=== PATIENT | female | born 1980 | race Caucasian/White ===

== ENCOUNTER 2016-12-12 10:37 | Emergency (ER) | payer SELFPAY ==
--- NOTE | 2016-12-12 13:29 | Emergency Department Report ---
ED ENT HPI - General Chief complaint: Headache Stated complaint: SINUS INFECTION Time Seen by Provider: 12/12/16 13:19 Source: patient Mode of arrival: Ambulatory Limitations: No Limitations - History of Present Illness Initial comments: This is a 35-year-old female well-nourished with nontoxic or ill in appearance but presents with sore throat, headache, and congestion. Patient stated get frequent yearly sinus infection and last sinus infection was last year. Patient stated she is prescribed amoxillicin for 10 days and symptoms resolved. Patient denies any thunderclap headache, stated her headache is a gradual onset that is relieved with OTC Tylenol and ibuprofen. Patient stated has subjective fever and chills. Patient stated the symptoms are similar to yearly sinus infections that she gets. Patient denies loss of consciousness, head trauma, ecchymosis, chest pain, short of breath, blurry vision, decreased range of motion, drooling, difficulty swallowing, facial numbness, bladder or bowel instability, diaphoresis, nausea, vomiting, abdominal pain, joint pain or swelling, visual changes, chest wall tenderness, numbness or tingling sensation extremity. Patient agrees to good rectal tone with no bladder overflow. Patient is currently ambulatory with no assistance. Associated symptoms include sore throat that is described as swallowing razer blades 10/10. Denies allergies. Denies significant past history. MD complaint: sore throat -: Gradual, days(s) (2) Location: throat Severity: moderate Severity scale (0 -10): 10 Quality: other (swallowing razor blades) Consistency: constant Improves with: none Worsens with: swallowing Associated Symptoms: fever, pain with swallowing, sore throat. denies: cough, gum swelling, toothache, tinnitus, hearing loss, discharge from ear, rhinorrhea - Related Data Previous Rx's Medication Instructions Recorded Last Taken Type Amoxicillin 500 mg PO BID #20 capsule 12/12/16 Unknown Rx Ibuprofen [Motrin 600 MG tab] 600 mg PO Q8H PRN #20 tablet 12/12/16 Unknown Rx Allergies Allergy/AdvReac Type Severity Reaction Status Date / Time No Known Allergies Allergy Verified 12/12/16 15:11 ED Dental HPI - General Chief complaint: Headache Stated complaint: SINUS INFECTION Time Seen by Provider: 12/12/16 13:19 Source: patient Mode of arrival: Ambulatory Limitations: No Limitations - Related Data Previous Rx's Medication Instructions Recorded Last Taken Type Amoxicillin 500 mg PO BID #20 capsule 12/12/16 Unknown Rx Ibuprofen [Motrin 600 MG tab] 600 mg PO Q8H PRN #20 tablet 12/12/16 Unknown Rx Allergies Allergy/AdvReac Type Severity Reaction Status Date / Time No Known Allergies Allergy Verified 12/12/16 15:11 ED Review of Systems ROS: Stated complaint: SINUS INFECTION Other details as noted in HPI Constitutional: denies: chills, fever Eyes: denies: eye pain, eye discharge, vision change ENT: throat pain, congestion. denies: ear pain, dental pain, hearing loss Respiratory: denies: cough, orthopnea, shortness of breath, SOB with exertion, SOB at rest, stridor, wheezing Cardiovascular: denies: chest pain, palpitations Endocrine: no symptoms reported Gastrointestinal: denies: abdominal pain, nausea, diarrhea Genitourinary: denies: urgency, dysuria, discharge Musculoskeletal: denies: back pain, joint swelling, arthralgia Skin: denies: rash, lesions Neurological: denies: headache, weakness, paresthesias Psychiatric: denies: anxiety, depression Hematological/Lymphatic: denies: easy bleeding, easy bruising ED Past Medical Hx - Past Medical History Previous Medical History?: Yes Hx Hypertension: Yes - Surgical History Past Surgical History?: No - Social History Smoking Status: Current Every Day Smoker Substance Use Type: Alcohol, Marijuana, Prescribed - Medications Home Medications: Home Medications Medication Instructions Recorded Confirmed Last Taken Type Amoxicillin 500 mg PO BID #20 capsule 12/12/16 Unknown Rx Ibuprofen [Motrin 600 MG tab] 600 mg PO Q8H PRN #20 tablet 12/12/16 Unknown Rx ED Physical Exam - General Limitations: No Limitations General appearance: alert, in no apparent distress - Head Head exam: Present: atraumatic, normocephalic, normal inspection - Eye Eye exam: Present: normal appearance, PERRL, EOMI. Absent: scleral icterus, conjunctival injection, nystagmus, periorbital swelling, periorbital tenderness Pupils: Present: normal accommodation - ENT ENT exam: Present: mucous membranes moist, TM's normal bilaterally, normal external ear exam - Expanded ENT Exam Expanded Mouth exam: Present: normal external inspection, tongue normal. Absent: drooling, trismus, muffled voice, tongue elevation, laceration Teeth exam: Present: normal inspection Throat exam: Positive: tonsillar erythema, tonsillomegaly (2+), tonsillar exudate. Negative: R peritonsillar mass, L peritonsillar mass - Neck Neck exam: Present: normal inspection, full ROM. Absent: tenderness, meningismus, lymphadenopathy, thyromegaly - Respiratory Respiratory exam: Present: normal lung sounds bilaterally. Absent: respiratory distress, wheezes, rales, rhonchi, stridor, chest wall tenderness, accessory muscle use, decreased breath sounds, prolonged expiratory - Cardiovascular Cardiovascular Exam: Present: regular rate, normal rhythm, normal heart sounds. Absent: bradycardia, tachycardia, irregular rhythm, systolic murmur, diastolic murmur, rubs, gallop - GI/Abdominal GI/Abdominal exam: Present: soft, normal bowel sounds. Absent: distended, tenderness, guarding, rebound, rigid, diminished bowel sounds - Extremities Exam Extremities exam: Present: normal inspection, full ROM, normal capillary refill. Absent: tenderness, pedal edema, joint swelling, calf tenderness - Back Exam Back exam: Present: normal inspection, full ROM. Absent: tenderness, CVA tenderness (R), CVA tenderness (L), muscle spasm, paraspinal tenderness, vertebral tenderness, rash noted - Neurological Exam Neurological exam: Present: alert, oriented X3, CN II-XII intact, normal gait, reflexes normal - Psychiatric Psychiatric exam: Present: normal affect, normal mood - Skin Skin exam: Present: warm, dry, intact, normal color. Absent: rash ED Course Vital Signs 12/12/16 12/12/16 12/12/16 10:45 13:39 14:44 Temperature 100.6 F H 101 F H Pulse Rate 101 H 102 H Respiratory 18 18 Rate Blood Pressure 155/99 Blood Pressure [Left] O2 Sat by Pulse 99 Oximetry 12/12/16 15:52 Temperature 99.4 F Pulse Rate 94 H Respiratory 16 Rate Blood Pressure Blood Pressure 142/83 [Left] O2 Sat by Pulse 100 Oximetry - Reevaluation(s) Reevaluation #1: 12/12/16 16:16 Patient is watching TV with no signs of distress. Patient stated feels much better and would like to go home. ED Medical Decision Making - Medical Decision Making Ed course: This is a 35-year-old female that presents with exudative tonsillitis 1- after my physical exam, due to pt having yearly sinus infection and exudcative tonsillitis with fever, chills, and tachycardia, pt recevied Rocephine 250mg and acetaminophen 650 mg by mouth in ED. 2- patient was described amoxicillin 500 mg by mouth twice a day for 10 days and was instructed to finish full course antibiotics as prescribed. 3 patient was also instructed to follow-up with her primary care doctor in 3-5 days or if symptoms worsen return back to emergency room as soon as possible. 4- at time time of discharge, the patient does not seem toxic or ill in appearance. No acute signs of distress noted. Patient agrees to discharge treatment plan of care. No further questions noted by the patient. 5- Pt received ibuprofen and normal saline bolus in the ED to decrease her temperature and heart rate. Critical care attestation.: If time is entered above; I have spent that time in minutes in the direct care of this critically ill patient, excluding procedure time. ED Disposition Clinical Impression: Exudative tonsillitis Upper respiratory infection Qualifiers: URI type: unspecified URI Qualified Code(s): J06.9 - Acute upper respiratory infection, unspecified Disposition: DC- TO HOME OR SELFCARE Is pt being admited?: No Does the pt Need Aspirin: No Condition: Stable Instructions: Ibuprofen (By mouth), Amoxicillin (By mouth), Tonsillitis (ED) Additional Instructions: Take full course of antibiotics as prescribed. Follow-up with her primary care doctor in 3-5 days or if symptoms worsen in unbearable return back to emergency room as was possible. Prescriptions: Amoxicillin 500 mg PO BID #20 capsule Ibuprofen [Motrin 600 MG tab] 600 mg PO Q8H PRN #20 tablet PRN Reason: Pain Referrals: PRIMARY CAREMD [Primary Care Provider] - 3-5 Days [facility] [Outside] - 3-5 Days [facility] [Outside] - 3-5 Days VERONICA URBINA JR, MD [Staff Physician] - 3-5 Days Forms: Work/School Release Form(ED)
[2016-12-12] MEDS ORDERED: TYLENOL PO ONE (13:30)
[2016-12-12] MEDS ORDERED: ROCEPHIN IM ONE (13:30)
[2016-12-12] MEDS ORDERED: XYLOCAINE 1% MPF 5 mL INFILTRATI ONE (13:30)
[2016-12-12] MEDS ORDERED: MOTRIN PO ONE (14:45)
[2016-12-12] MEDS ORDERED: NACL 0.9% 1000 ML 1,000 ML IV ONE (14:47)
[2016-12-12 15:53] VITALS: BP 142/83
== END 2016-12-12 16:27 | disposition home or self-care (01) ==
LOC: ED 10:37
DX: J03.90 Acute tonsillitis, unspecified (principal); I10 Essential (primary) hypertension; F17.210 Nicotine dependence, cigarettes, uncomplicated; F12.90 Cannabis use, unspecified, uncomplicated
CPT/HCPCS: 96360; 96372; 99283; J0696; J7030; 96361

== ENCOUNTER 2017-09-30 09:57 | Outpatient (CLI) | payer OTHER | END 2017-09-30 09:58 | disposition home or self-care (01) | LOC: LABHHL 09:57 | PROVIDERS: ATTEND Surgery | DX: Z53.9 Procedure and treatment not carried out, unspecified reason (principal) | CPT/HCPCS: 88305 ==

== ENCOUNTER 2019-08-23 20:57 | Emergency (ER) | payer OTHER ==
[2019-08-23 21:22] VITALS: BP 182/110
[2019-08-24] MEDS ORDERED: IBUPROFEN 600 MG TAB PO ONE (04:23)
[2019-08-24] MEDS ORDERED: ACETAMINOPHEN 500 MG TAB PO ONE (04:23)
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
== END 2019-08-24 06:09 | disposition home or self-care (01) ==
LOC: ED 20:57
DX: S29.011A Strain of muscle and tendon of front wall of thorax, initial encounter (principal); S43.82XA Sprain of other specified parts of left shoulder girdle, initial encounter; M62.830 Muscle spasm of back; M54.5 Low back pain; M54.2 Cervicalgia; F17.200 Nicotine dependence, unspecified, uncomplicated; F12.90 Cannabis use, unspecified, uncomplicated; I10 Essential (primary) hypertension; V89.2XXA Person injured in unspecified motor-vehicle accident, traffic, initial encounter; Y93.89 Activity, other specified; Y92.488 Other paved roadways as the place of occurrence of the external cause; Y99.8 Other external cause status; Z72.89 Other problems related to lifestyle; Z79.899 Other long term (current) drug therapy
CPT/HCPCS: 71046; 72040; 72100; 99283

== ENCOUNTER 2021-06-18 09:24 | Emergency (ER) | payer SELFPAY ==
[2021-06-18 09:31] VITALS: BP 198/116
--- NOTE | 2021-06-18 10:51 | Emergency Department Report ---
Minor Respiratory - HPI Chief Complaint: Fever Stated Complaint: CHILLS, SOB Time Seen by Provider: 06/18/21 10:13 Duration: 1 Day Severity: moderate Minor Respiratory: Yes Rhinorrhea, Yes Able to Tolerate Fluids, Yes Cough, Yes Sick Contacts, Yes Shortness of Breath, Yes Fever, No Sore Throat, No Ear Pain Other History: 40-year-old morbid obese -[place] female presents to the emergency room stating that she was exposed to someone with Covid. She complains of body aches fever chills headache chest pressure and diarrhea yesterday. Patient is vaccinated for Covid. She states she is scheduled for her booster June 25. She states she has been using [id number] Tylenol Sinus severe and has been taken ibuprofen. She reports her past medical history of hypertension PCOS and seasonal allergies. Patient states that she is on amlodipine 10 mg and hydrochlorothiazide 12.5 mg. Temperature in triage is 100.8 and mild tach and is at 108. Patient is nontoxic in appearance. ED Review of Systems ROS: Stated complaint: CHILLS, SOB Other details as noted in HPI ED Past Medical Hx - Past Medical History Previous Medical History?: Yes Hx Hypertension: Yes Additional medical history: polycystic ovarian syndrome - Social History Smoking Status: Current Every Day Smoker Substance Use Type: Alcohol, Marijuana, Prescribed - Medications Home Medications: Home Medications Medication Instructions Recorded Confirmed Last Taken Type Amoxicillin 500 mg PO BID #20 capsule 12/12/16 Unknown Rx Ibuprofen [Motrin 600 MG tab] 600 mg PO Q8H PRN #20 tablet 12/12/16 Unknown Rx Ibuprofen [Motrin] 800 mg PO Q8HR PRN #24 tablet 08/24/19 Unknown Rx tiZANidine [Zanaflex 4mg TAB] 4 mg PO Q8H PRN #21 tablet 08/24/19 Unknown Rx traMADoL [Ultram] 50 mg PO Q6HR PRN #12 tablet 08/24/19 Unknown Rx Promethazine Dm (Nf) [Phenergan DM 5 ml PO Q6H PRN #110 ml 06/18/21 Unknown Rx 6.25-15 mg/5 ml] Minor Respiratory Exam - Exam General: Vital signs noted. No distress. Alert and acting appropriately. HEENT: Yes Moist Mucous Membranes, No Pharyngeal Erythema, No Pharyngeal Exudates, No Rhinorrhea, No Conjuctival Injection, No Frontal Tenderness, No Maxillary Tenderness Ear: Neither EAC Pain, Neither EAC Discharge Neck: Yes Supple, No Adenopathy Lungs: Yes Good Air Exchange, Yes Cough, No Wheezes, No Ronchi, No Stridor, No Labored Respirations, No Retractions, No Use of Accessory Muscles, No Other Abnormal Lung Sounds Heart: Yes Regular, No Murmur Abdomen: Yes Normal Bowel Sounds, No Tenderness, No Peritoneal Signs Skin: No Rash, No Edema Neurologic: Alert and oriented, no deficits. Musculoskeletal: Unremarkable. ED Course Vital Signs 06/18/21 09:30 Temperature 100.8 F H Pulse Rate 108 H Respiratory 14 Rate Blood Pressure 198/116 O2 Sat by Pulse 98 Oximetry ED Medical Decision Making - Medical Decision Making 40-year-old morbid obese -[place] female presents to the emergency room stating that she was exposed to someone with Covid. She complains of body aches fever chills headache chest pressure and diarrhea yesterday. Patient is vaccinated for Covid. She states she is scheduled for her booster June 25. She states she has been using [id number] Tylenol Sinus severe and has been taken ibuprofen. She reports her past medical history of hypertension PCOS and seasonal allergies. Patient states that she is on amlodipine 10 mg and hydrochlorothiazide 12.5 mg. Temperature in triage is 100.8 and mild tach and is at 108. Patient is nontoxic in appearance. Patient is satting at 98% on room air. I instructed patient to get Covid tested. I asked that she hold out on her booster vaccination for another 3 months with a negative Covid test at that time. Patient can return back to work in 5 days with a negative Covid test. Patient is to return back to the emergency room if worsening symptoms Critical care attestation.: If time is entered above; I have spent that time in minutes in the direct care of this critically ill patient, excluding procedure time. ED Disposition Clinical Impression: Suspected COVID-19 virus infection, Contact with and (suspected) exposure to covid-19 Disposition: HOME / SELF CARE / HOMELESS Is pt being admited?: No Does the pt Need Aspirin: No Condition: Stable Instructions: COVID-19 Frequently Asked Questions, COVID-19: How to Protect Yourself and Others - CDC, Prevent the Spread of COVID-19 if You Are Sick - [facility] Additional Instructions: Your symptoms appear most consistent with a nonspecific viral syndrome. However, given this current pandemic, COVID-19 is in the differential of possibilities. I do recommend outpatient Covid 19 testing. In the meantime, isolate/quarantine yourself and stay away from anyone who is elderly, immunocompromised or chronically ill. You can use ibuprofen every 6-8 hours and Tylenol every 4-8 hours, using the dosing on the back of the bottle, as needed for any fever or body aches. Return to the emergency department with any worsening of your symptoms, development of chest pain or shortness of breath, or with any acute distress. Prescriptions: Promethazine Dm (Nf) [Phenergan DM 6.25-15 mg/5 ml] 5 ml PO Q6H PRN #110 ml PRN Reason: Cough Referrals: Your, primary care provider [Other] - 3-5 Days Forms: Work/School Release Form(ED) Time of Disposition: 10:50
== END 2021-06-18 12:19 | disposition home or self-care (01) ==
LOC: ED 09:24
DX: R07.9 Chest pain, unspecified (principal); R19.7 Diarrhea, unspecified; I10 Essential (primary) hypertension; F17.200 Nicotine dependence, unspecified, uncomplicated; F12.10 Cannabis abuse, uncomplicated; Z20.822 Contact with and (suspected) exposure to COVID-19
CPT/HCPCS: 87400; 99283